=== PATIENT | male | born 1980 | race Caucasian/White ===

== ENCOUNTER 2020-07-30 13:53 | Inpatient (IN) ==
[2020-07-30] MEDS ORDERED: Heparin - STEMI 5,000 UNITS/ML 1 ml VIAL IV ONE (14:02)
[2020-07-30] MEDS ORDERED: Heparin 5000 UNITS/ML 1 mL VIAL ONE (14:03)
[2020-07-30] MEDS ORDERED: Midazolam 5 mg/5 ml VIAL 1 mg/ml 5 ml VIAL (5 mg) ONE (14:10)
[2020-07-30] MEDS ORDERED: VERAPAMIL 2.5 MG/ML 2 ML VIAL ** 5 mg/2 ml ONE ×2 (14:11→14:52)
[2020-07-30] MEDS ORDERED: nitroGLYCERIN DRIP 25,000 MCG/250 ML BTL ONE (14:11)
[2020-07-30] MEDS ORDERED: Lidocaine 1% VIAL 10 MG/ML VIAL ONE (14:11)
[2020-07-30] MEDS ORDERED: diPHENhydraMINE IV 50 MG/ML 1 ml VIAL (BENADRYL) ONE (14:11)
[2020-07-30] MEDS ORDERED: Iohexol 350 (CONTRAST) 200 ML MDV IV ONE (14:11)
[2020-07-30] MEDS ORDERED: Heparin 2 UNITS/ML 1000 mls 3,000 ML IV ONE (14:11)
[2020-07-30] MEDS ORDERED: Heparin 1,000 UNIT/ML 10 ml (10,000 UNITS) CATHLAB/DIALYSIS ONE (14:11)
[2020-07-30] MEDS ORDERED: HYDROmorphone 1 MG/1 ML SYRINGE ONE (14:48)
[2020-07-30 14:59] LABS: ABS Basophils 0.1 10^3/ul (0-0.2); ABS Eosinophils 0.2 10^3/ul (0-0.6); ABS Lymphocytes 1.4 10^3/ul (1.0-4.8); ABS Monocytes 1.1 10^3/ul (0-0.8); ABS Neutrophils 5.6 10^3/ul (1.5-7.7); Eosinophil % 2.5 %; Hematocrit 48 % (42-52); Hemoglobin 16.2 g/dL (14.0-18.0); Lymphocyte % 16.5 %; Mean Corpuscular HGB Conc 34 g/dL (31-36); Mean Corpuscular Hemoglobin 32 pg (27-31); Mean Corpuscular Volume 94 fL (80-94); Mean Platelet Volume 7.9 fL (7.4-10.4); Platelet Count 239 10^3/uL (150-450); Red Blood Count 5.08 10^6 /uL (4.18-5.48); Red Cell Distribution Width 16 % (10-15); White Blood Count 8.3 10^3/uL (3.5-10.8)
[2020-07-30] MEDS ORDERED: Adenosine (DIAGNOSTIC) 3 mg/ml 20 ML VIAL (60 MG) IV ONE (15:16)
[2020-07-30 15:22] LABS: INR 1.33 (0.82-1.09)
[2020-07-30 15:23] LABS: ALT 5 U/L (7-52); AST 23 U/L (13-39); Albumin 3.2 g/dL (3.2-5.2); Albumin/Globulin Ratio 1.3 (1-3); Alkaline Phosphatase 56 U/L (34-104); Anion Gap 9 mmol/L (2-11); BUN/Creatinine Ratio 6.3 (8-20); Blood Urea Nitrogen 3 mg/dL (6-24); CO2 Carbon Dioxide 22 mmol/L (22-32); Calcium 8.1 mg/dL (8.6-10.3); Chloride 110 mmol/L (101-111); Creatine Kinase 159 U/L (10-223); EGFR African American 233.6 (>60); Globulin 2.5 g/dL (2-4); Glucose 105 mg/dL (70-100); LDL Cholesterol Direct 102 mg/dL; Potassium 3.5 mmol/L (3.5-5.0); Sodium 141 mmol/L (135-145); Total Protein 5.7 g/dL (6.4-8.9)
[2020-07-30 15:24] LABS: CKMB ng/mL 18.9 ng/mL (0.6-6.3); Troponin I 1.93 ng/mL (<0.03)
[2020-07-30 15:27] LABS: Activated Partial Thrombo Time >240.0 seconds (26.0-38.0)
[2020-07-30] MEDS ORDERED: NS 0.9% 1000 ml BAG 1,000 ML IV SCH (16:30)
[2020-07-30 17:49] LABS: Creatine Kinase 383 U/L (10-223)
[2020-07-30 17:54] LABS: Troponin I 6.58 ng/mL (<0.03)
[2020-07-30 23:31] LABS: Creatine Kinase 484 U/L (10-223)
[2020-07-30 23:37] LABS: CKMB ng/mL 66.3 ng/mL (0.6-6.3)
[2020-07-31 05:22] LABS: ABS Basophils 0.1 10^3/ul (0-0.2); ABS Eosinophils 0.3 10^3/ul (0-0.6); ABS Lymphocytes 1.5 10^3/ul (1.0-4.8); ABS Monocytes 1.5 10^3/ul (0-0.8); ABS Neutrophils 6.3 10^3/ul (1.5-7.7); Hematocrit 47 % (42-52); Hemoglobin 15.7 g/dL (14.0-18.0); Lymphocyte % 15.7 %; Mean Corpuscular HGB Conc 34 g/dL (31-36); Mean Corpuscular Hemoglobin 32 pg (27-31); Mean Corpuscular Volume 95 fL (80-94); Platelet Count 232 10^3/uL (150-450); Red Blood Count 4.95 10^6 /uL (4.18-5.48); Red Cell Distribution Width 16 % (10-15); White Blood Count 9.6 10^3/uL (3.5-10.8)
[2020-07-31 05:38] LABS: ALT 13 U/L (7-52); AST 68 U/L (13-39); Albumin 3.1 g/dL (3.2-5.2); Albumin/Globulin Ratio 1.2 (1-3); Alkaline Phosphatase 59 U/L (34-104); Anion Gap 4 mmol/L (2-11); BUN/Creatinine Ratio 6.3 (8-20); Blood Urea Nitrogen 4 mg/dL (6-24); CO2 Carbon Dioxide 27 mmol/L (22-32); Calcium 8.9 mg/dL (8.6-10.3); Chloride 107 mmol/L (101-111); Cholesterol 160 mg/dL; Creatine Kinase 367 U/L (10-223); EGFR African American 167.6 (>60); EGFR Non-African American 138.5 (>60); Globulin 2.5 g/dL (2-4); Glucose 90 mg/dL (70-100); HDL Cholesterol 39.7 mg/dL; LDL Cholesterol 98 mg/dL; Potassium 4.2 mmol/L (3.5-5.0); Sodium 138 mmol/L (135-145); Total Protein 5.6 g/dL (6.4-8.9); Triglycerides 111 mg/dL
[2020-07-31 05:43] LABS: CKMB ng/mL 47.7 ng/mL (0.6-6.3)
[2020-07-31 06:01] LABS: Troponin I 12.06 ng/mL (<0.03)
[2020-07-31 11:17] VITALS: BP 104/73
[2020-07-31 11:27] LABS: TSH Ultra Thyroid Stim Horm 10.65 mcIU/mL (0.34-5.60)
[2020-07-31 11:29] LABS: Free T4 0.87 ng/dL (0.61-1.12)
[2020-08-01] MEDS ORDERED: Vitamin THERAPEUTIC TAB PO SCH (09:00)
== END 2020-07-31 13:16 | disposition home or self-care (01) | DRG 174 ==
LOC: ED 13:53 → CHICATH 14:20 → ICU 16:30
PROVIDERS: ADMIT Internal Medicine Cardiovascular Disease; ATTEND Internal Medicine Cardiovascular Disease

== ENCOUNTER 2024-03-31 13:43 | Observation (INO) ==
[2024-03-31 14:37] LABS: INR 0.93 (0.83-1.13)
[2024-03-31 15:01] LABS: Albumin 4.5 g/dL (3.2-5.2); Albumin/Globulin Ratio 1.4 (1-3); Calcium 9.8 mg/dL (8.6-10.3); Creatinine, Serum 0.83 mg/dL (0.67-1.17); Globulin 3.2 g/dL (2-4); Total Bilirubin 1.1 mg/dL (0.2-1.0); Total Protein 7.7 g/dL (6.4-8.9); eGFR CKD-EPI 110.7 (>60)
[2024-03-31 15:15] LABS: ABS Eosinophils 0.1 10^3/uL (0.0-0.5); ABS Lymphocytes 0.9 10^3/uL (1.0-4.8); ABS Monocytes 0.7 10^3/uL (0.0-1.1); ABS Neutrophils 2.9 10^3/uL (1.5-7.6); ABS Nucleated RBC 0.01 10^3/ul; Eosinophil % 2.5 %; Hematocrit 50.9 % (38-53); Hemoglobin 17.6 g/dL (13.2-16.3); Large Platelets Present; Lymphocyte % 19.7 %; Mean Corpuscular Hemoglobin 33.7 pg (27-33); Mean Corpuscular Hgb Conc 34.6 g/dL (31-36); Mean Corpuscular Volume 97.4 fL (80-97); Mean Platelet Volume 8.6 fL (7.5-11.2); Nucleated Red Blood Cells % 0.1 %/100WBC (0.0-0.8); Platelet Count 200 10^3/uL (150-450); RBC Morphology Normal (Normal); Red Blood Count 5.22 10^6/uL (4.06-5.63); Red Cell Distribution Width 13.9 % (12-17); White Blood Count 4.7 10^3/uL (3.6-10.2)
[2024-03-31 15:16] LABS: ABS Basophils 0.1 10^3/ul (0.0-0.1); ABS Eosinophils 0.1 10^3/ul (0.0-0.5); ABS Monocytes 0.7 10^3/ul (0.0-1.1); ABS Neutrophils 2.8 10^3/ul (1.5-7.6)
[2024-03-31 15:18] LABS: Potassium 4.4 mmol/L (3.5-5.0)
[2024-03-31] MEDS ORDERED: Famotidine IV 10 MG/ML 2 ml VIAL (20 mg) ONE (15:39)
[2024-03-31] MEDS ORDERED: EPINEPHrine Anaphylaxis SYR CERTADOSE SYR KIT ONE (15:39)
[2024-03-31 16:02] LABS: High Sensitivity Troponin 1 Hr 54 pg/mL (<20)
[2024-03-31] MEDS ORDERED: Pantoprazole VIAL 40 MG VIAL IV SCH (17:00)
[2024-03-31] MEDS ORDERED: Iohexol 350 (CONTRAST) 500 ML MDV IV ONE (17:18)
[2024-03-31 17:20] VITALS: BP 148/94
[2024-03-31 17:21] LABS: Magnesium 1.9 mg/dL (1.9-2.7)
[2024-03-31] MEDS ORDERED: Heparin DRIP 25,000 UNITS BAG 25,000 UNITS/250 ML BAG IV SCH (17:30)
[2024-03-31] MEDS ORDERED: Sulfur Hexaflouride MICROSPHR 25 MG VIAL IV ONE (17:39)
[2024-03-31] MEDS ORDERED: Nicotine PATCH 14 MG/24 HR PATCH TRANSDERM SCH (18:00)
[2024-03-31] MEDS ORDERED: Heparin 5000 UNITS/ML 1 mL VIAL IV SCH (18:00)
[2024-03-31 18:14] LABS: HDL Cholesterol 129.8 mg/dL
[2024-03-31 18:28] LABS: TSH Ultra Thyroid Stim Horm 26.22 mcIU/mL (0.34-5.60)
== END 2024-03-31 18:24 | disposition left against medical advice (07) ==
LOC: EDHOLD 13:43 → ED 13:43 → MEDTELE 17:44 → EDHOLD 18:23 → UNDODISOB 18:24
PROVIDERS: ADMIT Student in an Organized Health Care Education/Training Program; ATTEND Student in an Organized Health Care Education/Training Program